=== PATIENT | male | born 2000 | race Two or more races ===

== ENCOUNTER 2022-08-03 00:39 | Emergency (ER) | payer OTHER ==
[~2022-08-03] VITALS: Ht 175.3 cm; Wt 69.4 kg
== END 2022-08-03 05:49 | disposition home or self-care (01) ==
LOC: ER 00:39
DX: R10.13 Epigastric pain (principal); R11.2 Nausea with vomiting, unspecified; Z20.822 Contact with and (suspected) exposure to COVID-19